=== PATIENT | female | born 1990 | race Caucasian/White ===

== ENCOUNTER 2021-12-12 15:57 | Outpatient (CLI) | payer OTHER, SELFPAY ==
--- NOTE | ~2021-12-12 | US_ITS ---
EXAMINATION: US pelvic complete w TV DATE: 12/12/2021 17:03 INDICATION: Abnormal uterine bleeding Comparison:No prior studies for comparison. TECHNIQUE: Multiple transabdominal and endovaginal sonographic images of the pelvis performed. FINDINGS: The uterus measures 7 x 3.4 x 3.9 cm. There is an IUD in the endometrium. There is a naboth daquan cysts. The endometrial complex measures 4 mm. The right ovary measures 3.7 x 1.7 x 1.6 cm and the left ovary measures 3.4 x 1.5 1.7 cm. There are small follicles in each ovary. Normal doppler signal in both ovaries. There is no free fluid in the pelvis. There are no abnormal masses seen on either side. IMPRESSION: 1. Unremarkable pelvic ultrasound. Reviewed, dictated and finalized at location A.
== END 2021-12-12 15:58 | disposition home or self-care (01) ==
LOC: ANHIMG 16:04
PROVIDERS: PCP Internal Medicine; Visit Provider Nurse Practitioner
DX: N93.8 Other specified abnormal uterine and vaginal bleeding (principal)
CPT/HCPCS: 76830; 76856